=== PATIENT | male | born 1980 | race Caucasian/White ===

== ENCOUNTER → 2017-07-24 | Outpatient (CLI) | payer OTHER ==
[~2017-07-24] MED LIST: LISI20TA PO; TRAM50TA2 PO
[2017-07-24 18:00] LABS: INR 0.95
[2017-07-24 19:16] LABS: ANION GAP 8 MEQ/L (8-16); BLOOD UREA NITROGEN 14 MG/DL (7-18); CALCIUM LEVEL 9.4 MG/DL (8.5-10.1); CARBON DIOXIDE LEVEL 29 MEQ/L (21-32); CHLORIDE LEVEL 102 MEQ/L (98-107); CREATININE FOR GFR 0.95 MG/DL (0.70-1.30); GLOMERULAR FILTRATION RATE > 60.0 (>60); GLUCOSE, FASTING 90 MG/DL (70-105); SODIUM LEVEL 139 MEQ/L (136-145)
[2017-07-24 19:38] LABS: MEAN CORPUSCULAR HGB CONC 35.1 g/dl (32.0-36.5); MEAN CORPUSCULAR VOLUME 94.2 fl (80.0-96.0); PLATELET COUNT, AUTOMATED 260 10^3/uL (150-450); RED CELL DISTRIBUTION WIDTH 11.4 % (11.5-14.5); WHITE BLOOD COUNT 7.7 10^3/uL (4.0-10.0)
== END ==
LOC: M SMT 15:50
PROVIDERS: ATTEND Urology
DX: Z01.818 Encounter for other preprocedural examination (principal); N50.811 Right testicular pain
CPT/HCPCS: 36415; 80048; 85027; 85610; 85730; G0463

== ENCOUNTER → 2017-08-06 | Outpatient (CLI) | payer OTHER ==
--- NOTE | 2017-08-07 01:12 | ECGEPIP ---
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
== END ==
LOC: M EKG 14:53
PROVIDERS: ATTEND Anesthesiology
DX: Z00.00 Encounter for general adult medical examination without abnormal findings (principal)

== ENCOUNTER 2017-08-11 05:56 | Day surgery (SDC) | payer OTHER ==
[~2017-08-11] VITALS: Ht 170.2 cm; Wt 88.9 kg
[2017-08-11] MEDS ORDERED: LR 1,000 ML IV ONE (06:15)
[2017-08-11] MEDS ORDERED: BACITRACIN OINT 30GM As Ordered ONE (07:17)
[2017-08-11] MEDS ORDERED: BUPIVACAINE HCL 0.25% 30 ML VIAL As Ordered ONE (07:17)
[2017-08-11] MEDS ORDERED: PROPOFOL 200 MG/20 ML VIAL As Ordered ONE ×2 (07:21→08:11)
[2017-08-11] MEDS ORDERED: fentaNYL 100 MCG/2 ML INJECTION (J3010) As Ordered ONE ×2 (07:21→08:02)
[2017-08-11] MEDS ORDERED: LIDOCAINE 2% INJ 100 MG/5 ML SYRINGE As Ordered ONE (07:21)
[2017-08-11] MEDS ORDERED: MIDAZOLAM INJ 2 MG/2 ML VIAL (J2250) As Ordered ONE (07:21)
[2017-08-11] MEDS ORDERED: ROCURONIUM BROMIDE 50 MG/5 ML VIAL/SYRINGE As Ordered ONE ×2 (07:21→17:36)
[2017-08-11] MEDS ORDERED: NEOSTIGMINE 10 MG/10 ML VIAL (J2710) As Ordered ONE (08:19)
[2017-08-11] MEDS ORDERED: GLYCOPYRROLATE INJ 0.2 MG/ML 2 ML VIAL As Ordered ONE (08:19)
[2017-08-11] MEDS ORDERED: KETOROLAC 60 MG/2 ML VIAL (J1885) As Ordered ONE (08:20)
[2017-08-11] MEDS ORDERED: ONDANSETRON 4MG/2ML VIAL (J2405) As Ordered ONE (08:20)
[2017-08-11] MEDS ORDERED: ONDANSETRON 4MG/2ML VIAL (J2405) IV PRN (09:15)
[2017-08-11] MEDS ORDERED: traMADol 50 MG TAB PO PRN ×2 (09:15)
[2017-08-11] MEDS ORDERED: MEPERIDINE INJ 25 MG/ML VIAL (J2175) IV PRN (09:15)
[2017-08-11] MEDS ORDERED: PERCOCET 5MG/325MG TAB PO PRN (09:15)
[2017-08-11] MEDS ORDERED: LR 1,000 ML IV SCH (09:15)
[2017-08-11] MEDS ORDERED: fentaNYL 100 MCG/2 ML INJECTION (J3010) IV PRN (09:15)
[2017-08-11 10:14] VITALS: BP 138/83
--- NOTE | 2017-08-11 10:15 | RO ---
DATE OF PROCEDURE: 08/11/2017 PREPROCEDURE DIAGNOSIS: Chronic right testicular pain. POSTPROCEDURE DIAGNOSIS: Chronic right testicular pain. PROCEDURE: Simple right orchiectomy. SURGEON: Dr. Fantasma Murcia. PALEOLOGIST: None. ANESTHESIA: General. OPERATIVE INDICATIONS: This is a 36-year-old male who has had chronic right testicular pain after sustaining an injury in the . Despite lots of conservative management, his pains have not been well controlled and he has ultimately requested to have his testicle removed for management of his pain. DESCRIPTION OF PROCEDURE: The patient was brought to the operating room where general anesthesia was induced. Prophylactic antibiotics were infused. He was then placed in supine position, prepped and draped in the usual sterile fashion. At this point, the patient was examined and of note he had a large scar on his right hemiscrotum. At this point, a 4 cm transverse incision was made over the right hemiscrotum. I then dissected down through scrotal wall layers and the testicle was delivered outside of the scrotum. I dissected the spermatic cord out and did this as proximally as possible. I then placed a Hannah clamp across the cord and divided the cord in two separate packets just distal to the clamp. Two clamps were then placed on these two separate packets. The testicle and spermatic cord were then transected just distal to the two clamps. I ligated each packet with #0 Vicryl ties. A #0 Vicryl suture ligature was then placed proximal to the more proximal Hannah clamp. At this point, I checked for hemostasis and the areas of bleeding were controlled with electrocautery. The scrotum was then irrigated out. Then I closed the [place] fascia with a running #2-0 Vicryl suture. The skin was closed with interrupted #2-0 Chromic sutures. Dressings were then applied and this marked the conclusion of the procedure. The patient was then awakened from anesthesia and transported to the recovery room in stable condition. ESTIMATED BLOOD LOSS: 5 mL. COMPLICATIONS: None. SPECIMENS: Right testicle and spermatic cord. PLAN: The patient will followup in the clinic in a few weeks to see his pain is better at this point. GUSTAVO
== END 2017-08-11 10:54 | disposition home or self-care (01) ==
LOC: M SDC 05:56
PROVIDERS: ATTEND Urology
DX: N50.811 Right testicular pain (principal); G89.29 Other chronic pain; I10 Essential (primary) hypertension; F43.10 Post-traumatic stress disorder, unspecified; R06.83 Snoring; G47.33 Obstructive sleep apnea (adult) (pediatric); Z79.899 Other long term (current) drug therapy
CPT/HCPCS: 54520; 88305; J0690; J1885; J2250; J2405; J2710; J3010

== ENCOUNTER → 2018-09-25 | Outpatient (CLI) | payer OTHER ==
[~2018-09-25] MED LIST changes: +ISOVUE-370 76% 100ML VIAL (Q9967) As Ordered ONE
--- NOTE | 2018-09-25 10:34 | REP ---
CT urography: CT abdomen and pelvis without and with IV contrast: History: Hematuria. Comparison study: August 27, 2013. CT contrast dose: 100 mL of intravenous Isovue 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 The lung window settings demonstrate that the lung bases are clear. The liver and the spleen are normal in size and homogeneous in texture. No focal liver lesion is seen. The gallbladder is unremarkable. Normal adrenal glands are seen bilaterally. There is a small accessory splenule anterior and inferior to the spleen. No pancreatic abnormality is observed. No retroperitoneal mass or adenopathy is seen. There is no evidence of intrarenal calculus or hydronephrosis on either side. The kidneys enhance symmetrically and are morphologically intact. No renal mass, cyst or infarct is seen. Delayed scans show no filling defect in the collecting system on either side. Ureters describe a normal course to the urinary bladder. No bladder mass lesion is observed. No bladder calculus is seen. Prostate and seminal vesicles are unremarkable. No abdominal wall defect is seen. Small and large intestinal bowel loops are unremarkable in the abdomen and pelvis. Bone window settings show no acute bony abnormality. Impression: Negative CT urography. Electronically Signed by Jovany Guevara MD 09/25/2018 07:08 P
== END ==
LOC: M RAD 08:35
PROVIDERS: ATTEND Physician Assistant
DX: R31.9 Hematuria, unspecified (principal)
CPT/HCPCS: 74178; Q9967

== ENCOUNTER → 2018-09-29 | Outpatient (REF) | payer OTHER ==
[~2018-09-29] MED LIST changes: -ISOVUE-370 76% 100ML VIAL (Q9967) As Ordered ONE
[2018-09-29 16:19] LABS: APPEARANCE, URINE CLEAR (CLEAR); BACTERIA, URINE AUTO NEGATIVE (NEGATIVE); BILIRUBIN, URINE AUTO NEGATIVE (NEGATIVE); BLOOD, URINE BLOOD NEGATIVE (NEGATIVE); COLOR, URINE STRAW (YELLOW); GLUCOSE, URINE (UA) AUTO NEGATIVE (NEGATIVE); KETONE, URINE AUTO NEGATIVE (NEGATIVE); LEUKOCYTE ESTERASE, URINE AUTO NEGATIVE (NEGATIVE); NITRITE, URINE AUTO NEGATIVE (NEGATIVE); PROTEIN, URINE AUTO NEGATIVE (NEGATIVE); RBC, URINE AUTO 0 /HPF (0-3); SQUAMOUS EPITHELIAL CELL UR AU 0 /HPF (0-6); UROBILINOGEN, URINE AUTO 0.2 mg/dL (0.0-2.0); WBC, URINE AUTO 0 /HPF (0-3)
== END ==
LOC: M SMT 12:55
PROVIDERS: ATTEND Nurse Practitioner Women's Health
DX: R31.9 Hematuria, unspecified (principal)

== ENCOUNTER → 2018-12-15 | Outpatient (CLI) | payer OTHER ==
[2018-12-15 18:19] LABS: INR 0.96; PARTIAL THROMBOPLASTIN TIME 26.3 SECONDS (25.4-37.6); PROTHROMBIN TIME 12.9 SECONDS (12.1-14.4)
== END ==
LOC: M SMT 14:17
PROVIDERS: ATTEND Physician Assistant
DX: Z01.812 Encounter for preprocedural laboratory examination (principal); M51.16 Intervertebral disc disorders with radiculopathy, lumbar region

== ENCOUNTER 2020-07-20 08:55 | Emergency (ER) | payer OTHER ==
[~2020-07-20] VITALS: Ht 170.2 cm; Wt 94.1 kg
[~2020-07-20 08:55] MED LIST changes: -LISI20TA PO; +LISI20TA35 PO
[2020-07-20] MEDS ORDERED: CYMB60CA3 PO (09:08)
[2020-07-20] MEDS ORDERED: HYDR-4570 PO (09:08)
[2020-07-20] MEDS ORDERED: PRAZ2CAP PO (09:08)
[2020-07-20] MEDS ORDERED: CETI10CA2 PO (09:08)
[2020-07-20 09:45] LABS: BASO # 0.1 10^3/uL (0.0-0.2); BASO % 0.9 % (0.0-1.0); EOS # 0.3 10^3/uL (0.0-0.5); EOS % 3.5 % (0.0-3.0); HEMATOCRIT 47.7 % (42.0-52.0); HEMOGLOBIN 16.4 g/dl (13.5-17.5); LYMPH # 1.8 10^3/uL (1.5-5.0); LYMPH % 23.8 % (24.0-44.0); MEAN CORPUSCULAR HEMOGLOBIN 34.2 pg (27.0-33.0); MEAN CORPUSCULAR HGB CONC 34.4 g/dl (32.0-36.5); MEAN CORPUSCULAR VOLUME 99.4 fl (80.0-96.0); MONO # 0.8 10^3/uL (0.0-0.8); MONO % 10.4 % (0.0-5.0); NEUTROPHILS # 4.5 10^3/uL (1.5-8.5); NEUTROPHILS % 61.1 % (36.0-66.0); PLATELET COUNT, AUTOMATED 277 10^3/uL (150-450); WHITE BLOOD COUNT 7.4 10^3/uL (4.0-10.0)
--- NOTE | 2020-07-20 10:09 | REP ---
INDICATION: cough, sob COMPARISON: 12/15/2018. TECHNIQUE: PA/Lateral FINDINGS: Lungs: Clear, no infiltrate. Heart: Normal in size. Mediastinum: Mediastinal silhouette unremarkable. Pleural angles: Unremarkable.. Bones and soft tissues: Unremarkable. IMPRESSION: No acute pulmonary disease. <Electronically signed by Cooper Jara > 07/20/20 [id number]
[2020-07-20 10:23] LABS: ALBUMIN 4.3 GM/DL (3.2-5.2); ALT/SGPT 135 U/L (12-78); BILIRUBIN,DIRECT 0.1 MG/DL (0.0-0.2); BILIRUBIN,TOTAL 0.4 MG/DL (0.2-1.0); BLOOD UREA NITROGEN 9 MG/DL (7-18); CALCIUM LEVEL 9.8 MG/DL (8.5-10.1); CARBON DIOXIDE LEVEL 27 MEQ/L (21-32); CHLORIDE LEVEL 108 MEQ/L (98-107); CK-MB VALUE MASS 1.1 NG/ML (<3.6); CPK CREATINE PHOSPHOKINASE 172 U/L (39-308); CREATININE FOR GFR 0.96 MG/DL (0.70-1.30); GLOMERULAR FILTRATION RATE > 60.0 (>60); GLUCOSE, FASTING 105 MG/DL (70-100); MB/CK RELATIVE INDEX 0.64 (< OR =4); NT-PRO BNP 11 PG/ML (<125); POTASSIUM SERUM 4.4 MEQ/L (3.5-5.1); SODIUM LEVEL 140 MEQ/L (136-145); TOTAL PROTEIN 7.3 GM/DL (6.4-8.2); TROPONIN I < 0.02 NG/ML (< 0.10)
[2020-07-20] MEDS ORDERED: ALBUTEROL 90 MCG/ACT 8GM HFA INHALER INH ONE (11:30)
[2020-07-20] MEDS ORDERED: MOME50SP NARES (12:00)
[2020-07-20] MEDS ORDERED: VENTAER INH (12:00)
[2020-07-20 12:02] VITALS: BP 138/99
[2020-07-20] MEDS ORDERED: BENZ200C70 PO (12:02)
--- NOTE | 2020-07-21 07:01 | ECGEPIP ---
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 Order Number: [id number] Reading MD: Lupillo Cardoza Measurements Intervals [place] Rate: 80 P: 12 [place]: 124 QRS: 65 QRSD: 98 T: 26 QT: 372 QTc: 429 Interpretive Statements SINUS RHYTHM Electronically Signed on 07-21-2020 7:00:47 EDT by Lupillo Cardoza
== END 2020-07-20 12:21 | disposition home or self-care (01) ==
LOC: M ED 08:55
DX: J45.909 Unspecified asthma, uncomplicated (principal); I10 Essential (primary) hypertension; G47.33 Obstructive sleep apnea (adult) (pediatric); F41.9 Anxiety disorder, unspecified

== ENCOUNTER → 2020-09-20 | Outpatient (CLI) | payer SELFPAY ==
[~2020-09-20] MED LIST changes: +BENZ200C70 PO; +CETI10CA2 PO; +CYMB60CA3 PO; +HYDR-4570 PO; +MOME50SP NARES; +PRAZ2CAP PO; +VENTAER INH
== END ==
LOC: M LABSMTC 10:20
PROVIDERS: ATTEND Pediatrics
DX: Z20.828 Contact with and (suspected) exposure to other viral communicable diseases (principal)

== ENCOUNTER 2022-01-16 03:39 | Emergency (ER) | payer OTHER ==
[~2022-01-16] VITALS: Ht 172.7 cm; Wt 95.1 kg
[~2022-01-16 03:39] MED LIST changes: -CYMB60CA3 PO; +CYMB60CA4 PO; -MOME50SP NARES; +NASO50SP3 NARES
[2022-01-16] MEDS ORDERED: ETOMIDATE INJ 20MG/10ML VIAL IV ONE (04:10)
[2022-01-16] MEDS ORDERED: NS 1,000 ML IV ONE ×2 (04:10→04:40)
[2022-01-16] MEDS ORDERED: ASPIRIN 81 MG CHEW TABLET PO ONE (04:10)
[2022-01-16] MEDS ORDERED: atenoloL 25 MG TAB PO ONE (04:30)
[2022-01-16 04:48] LABS: BLOOD UREA NITROGEN 9 MG/DL (7-18); CARBON DIOXIDE LEVEL 22 MEQ/L (21-32); CHLORIDE LEVEL 102 MEQ/L (98-107); CREATININE FOR GFR 1.09 MG/DL (0.70-1.30); GLOMERULAR FILTRATION RATE > 60.0 (>60); GLUCOSE, FASTING 194 MG/DL (70-100); POTASSIUM SERUM 3.6 MEQ/L (3.5-5.1); SODIUM LEVEL 136 MEQ/L (136-145)
[2022-01-16 04:49] LABS: CALCIUM LEVEL 9.1 MG/DL (8.5-10.1)
[2022-01-16 04:51] LABS: CK-MB VALUE MASS 1.5 NG/ML (<3.6); MB/CK RELATIVE INDEX 0.58 (< OR =4)
[2022-01-16 04:52] LABS: BASO # 0.1 10^3/uL (0.0-0.2); BASO % 0.9 % (0.0-1.0); EOS # 0.2 10^3/uL (0.0-0.5); EOS % 1.5 % (0.0-3.0); HEMATOCRIT 47.2 % (42.0-52.0); HEMOGLOBIN 17.1 g/dl (13.5-17.5); LYMPH # 3.1 10^3/uL (1.5-5.0); LYMPH % 30.9 % (24.0-44.0); MEAN CORPUSCULAR HEMOGLOBIN 35.1 pg (27.0-33.0); MEAN CORPUSCULAR HGB CONC 36.2 g/dl (32.0-36.5); MEAN CORPUSCULAR VOLUME 96.9 fl (80.0-96.0); MONO # 0.9 10^3/uL (0.0-0.8); MONO % 8.5 % (2.0-8.0); NEUTROPHILS # 5.9 10^3/uL (1.5-8.5); NEUTROPHILS % 57.9 % (36.0-66.0); PLATELET COUNT, AUTOMATED 176 10^3/uL (150-450); RED BLOOD COUNT 4.87 10^6/uL (4.30-6.10); WHITE BLOOD COUNT 10.1 10^3/uL (4.0-10.0)
[2022-01-16 05:03] LABS: INR 0.95; PROTHROMBIN TIME 13.1 SECONDS (12.7-14.5)
[2022-01-16 05:04] LABS: PARTIAL THROMBOPLASTIN TIME 29.7 SECONDS (25.9-37.0)
[2022-01-16 06:25] LABS: MB/CK RELATIVE INDEX 0.92 (< OR =4)
[2022-01-16] MEDS ORDERED: NITROGLYCERIN 0.4 MG SUBL TABLET SL STA (06:26)
[2022-01-16 06:34] VITALS: BP 139/95
[2022-01-16] MEDS ORDERED: ASPI-255 PO (07:43)
[2022-01-16] MEDS ORDERED: DILT240C82 PO (07:43)
[2022-01-16 07:45] VITALS: BP 128/87
== END 2022-01-16 08:02 | disposition home or self-care (01) ==
LOC: M ED 03:39
DX: I48.91 Unspecified atrial fibrillation (principal); R74.8 Abnormal levels of other serum enzymes; R00.0 Tachycardia, unspecified; I10 Essential (primary) hypertension; G47.33 Obstructive sleep apnea (adult) (pediatric); F10.10 Alcohol abuse, uncomplicated; F90.9 Attention-deficit hyperactivity disorder, unspecified type; Z79.899 Other long term (current) drug therapy

== ENCOUNTER 2022-12-10 08:01 | Emergency (ER) | payer OTHER ==
[~2022-12-10] VITALS: Ht 170.2 cm; Wt 84.1 kg
[~2022-12-10 08:01] MED LIST changes: +ASPI-255 PO; +DILT240C82 PO
[2022-12-10] MEDS ORDERED: KETOROLAC 30 MG/ML 1ML VIAL IV ONE (10:50)
[2022-12-10 11:38] LABS: BASO # 0.1 10^3/uL (0.0-0.2); BASO % 0.6 % (0.0-1.0); EOS # 0.1 10^3/uL (0.0-0.5); HEMATOCRIT 45.1 % (42.0-52.0); HEMOGLOBIN 15.9 g/dl (13.5-17.5); LYMPH # 2.2 10^3/uL (1.5-5.0); LYMPH % 22.3 % (24.0-44.0); MEAN CORPUSCULAR HEMOGLOBIN 32.3 pg (27.0-33.0); MEAN CORPUSCULAR HGB CONC 35.3 g/dl (32.0-36.5); MEAN CORPUSCULAR VOLUME 91.7 fl (80.0-96.0); MONO # 0.9 10^3/uL (0.0-0.8); MONO % 8.8 % (2.0-8.0); NEUTROPHILS # 6.6 10^3/uL (1.5-8.5); PLATELET COUNT, AUTOMATED 263 10^3/uL (150-450); RED BLOOD COUNT 4.92 10^6/uL (4.30-6.10); WHITE BLOOD COUNT 9.9 10^3/uL (4.0-10.0)
[2022-12-10 12:02] LABS: C REACTIVE PROTEIN QUANTITATIV < 0.40 MG/DL (<1.0)
[2022-12-10 12:03] LABS: BLOOD UREA NITROGEN 16 MG/DL (9-23); CALCIUM LEVEL 9.7 MG/DL (8.5-10.1); CARBON DIOXIDE LEVEL 22 MMOL/L (20-31); CHLORIDE LEVEL 104 MMOL/L (98-107); CPK CREATINE PHOSPHOKINASE 100 U/L (46-171); CREATININE FOR GFR 0.85 MG/DL (0.70-1.30); GLOMERULAR FILTRATION RATE > 60.0 (>60); GLUCOSE, FASTING 95 MG/DL (60-100); POTASSIUM SERUM 4.3 MMOL/L (3.5-5.1); SODIUM LEVEL 136 MMOL/L (136-145)
[2022-12-10 12:11] LABS: ERYTHROCYTE SEDIMENTATION RATE 8 mm/hr (0-15)
[2022-12-10] MEDS ORDERED: KETO10TAB PO (13:28)
[2022-12-10] MEDS ORDERED: MEDR4PAK PO (13:28)
[2022-12-10 13:32] VITALS: BP 149/105
== END 2022-12-10 13:37 | disposition home or self-care (01) ==
LOC: M ED 08:01
DX: M54.12 Radiculopathy, cervical region (principal); M62.838 Other muscle spasm; M25.78 Osteophyte, vertebrae; I10 Essential (primary) hypertension; G47.30 Sleep apnea, unspecified; F41.9 Anxiety disorder, unspecified; Z90.89 Acquired absence of other organs; Z79.51 Long term (current) use of inhaled steroids